=== PATIENT | male | born 1935 | race Caucasian/White ===

== ENCOUNTER 2017-08-12 11:31 | Emergency (ER) | payer BC ==
[~2017-08-12] VITALS: Ht 172.7 cm; Wt 80.7 kg
[2017-08-12 11:43] VITALS: BP_SYST 158
[2017-08-12 13:30] VITALS: BP_SYST 141
== END 2017-08-12 13:30 | disposition home or self-care (01) ==
LOC: SED 11:31
DX: M19.90 Unspecified osteoarthritis, unspecified site (principal); I10 Essential (primary) hypertension; E11.9 Type 2 diabetes mellitus without complications
CPT/HCPCS: 36415; 84550-TC; 99285

== ENCOUNTER 2021-02-08 12:03 | Observation (INO) | payer OTHER, SELFPAY ==
[~2021-02-08] VITALS: Ht 165.1 cm; Wt 68.5 kg
[2021-02-08 12:07] VITALS: BP_SYST 132
[2021-02-08] MEDS ORDERED: MORPHINE 4 MG INJ. 4 MG/ML VIAL IVP ONE (14:15)
[2021-02-08] MEDS ORDERED: DIAZEPAM 5 MG TABLET (VALIUM) PO ONE (14:15)
[2021-02-08 14:27] LABS: BASOPHILS # (AUTO) 0.1 K/uL (0.0-0.2); EOSINOPHILS % (AUTO) 0.6 % (0.0-4.0); HEMATOCRIT 39.3 % (36-54); HEMOGLOBIN 13.3 g/dL (14.0-18.0); LYMPHOCYTES % (AUTO) 15.2 % (20.5-51.5); MEAN CORPUSCULAR HEMOGLOBIN 31 pg (27-31); MEAN CORPUSCULAR HGB CONC 34 % (32-36); MEAN CORPUSCULAR VOLUME 91 fL (79.0-98.0); MONOCYTES # (AUTO) 0.5 K/uL (0.0-1.0); MONOCYTES % (AUTO) 7.3 % (1.7-9.3); NEUTROPHILS # (AUTO) 4.8 K/uL (1.8-7.7); NEUTROPHILS % (AUTO) 75.9 % (40.0-70.0); PLATELET COUNT (AUTO) 138 K/uL (130-430); RED BLOOD CELL COUNT(AUTO) 4.31 MIL/uL (4.2-6.2); RED CELL DISTRIBUTION WIDTH 13.5 % (9.0-15.0); WHITE BLOOD COUNT (AUTO) 6.3 K/uL (4.8-10.8)
[2021-02-08 14:38] LABS: BILIRUBIN,URINE NEGATIVE (NEGATIVE); BLOOD, URINE NEGATIVE (NEGATIVE); CLARITY/URINE CLEAR (CLEAR); COLOR,URINE YELLOW (YELLOW); GLUCOSE,URINE 2+ (NEGATIVE); KETONES,URINE NEGATIVE (NEGATIVE); LEUKOCYTE ESTERASE ,URINE NEGATIVE (NEGATIVE); NITRITE, URINE NEGATIVE (NEGATIVE); PROTEIN URINE NEGATIVE (NEGATIVE); UROBILINOGEN,URINE 0.2 (0.2-1.0)
[2021-02-08 14:45] LABS: ALANINE AMINOTRANSFERASE 34 U/L (12-78); ALBUMIN 4.6 g/dL (3.4-4.8); ASPARTATE AMINOTRANSFERASE 21 U/L (10-37); CALCIUM 9.2 mg/dL (8.4-11.0); GLUCOSE 235 mg/dL (70-99); TOTAL BILIRUBIN 0.5 mg/dL (0.0-1.0); UREA NITROGEN, BLOOD 22 mg/dL (8-21)
[2021-02-08 14:52] LABS: INR 1.6 (0.80-1.20); PROTHROMBIN TIME 16.7 SECS (9.5-12.5)
[2021-02-08 15:03] LABS: ANION GAP 11 (5-15); CHLORIDE 98 mmol/L (98-107); POTASSIUM 4.1 mmol/L (3.5-5.1); SODIUM SERUM 135 mmol/L (136-145)
[2021-02-08] MEDS ORDERED: IOHEXOL 350 mgI/mL, 150 ML INFUS..BTL IV ONE (15:30)
[2021-02-08] MEDS ORDERED: SIMV40TA2 PO (18:27)
[2021-02-08] MEDS ORDERED: METF-518 PO (18:27)
[2021-02-08] MEDS ORDERED: MIRT-91 PO (18:27)
[2021-02-08] MEDS ORDERED: DIGO125T PO (18:27)
[2021-02-08] MEDS ORDERED: PLE5 PO (18:27)
[2021-02-08] MEDS ORDERED: HYDR25TA4 PO (18:27)
[2021-02-08] MEDS ORDERED: WARF-52 PO (18:27)
[2021-02-08] MEDS ORDERED: ALPR0.5T8 PO (18:27)
[2021-02-08] MEDS ORDERED: FOSI20TA98 PO (18:27)
[2021-02-08] MEDS ORDERED: ALBUTEROL SULFATE 0.083% 2.5 MG/3 ML VIAL.NEB INH PRN (18:45)
[2021-02-08] MEDS ORDERED: ACETAMINOPHEN 325 MG TABLET PO PRN (18:45)
[2021-02-08] MEDS ORDERED: HYDROmorphone 1 MG/ML INJ. CARTRIDGE IVP PRN (19:00)
[2021-02-08] MEDS ORDERED: INSULIN REGULAR, HUMAN 100 UNITS/ML, 10 ML VIAL (humuLIN R) SUBCUT PRN (19:00)
[2021-02-08] MEDS ORDERED: SIMVASTATIN 40 MG TABLET PO SCH (21:00)
[2021-02-08] MEDS ORDERED: WARFARIN SODIUM 5 MG TABLET PO SCH (21:00)
[2021-02-08] MEDS ORDERED: WARFARIN SODIUM 5 MG TABLET ONE (21:33)
[2021-02-08] MEDS ORDERED: MIRTAZAPINE 15 MG TABLET ONE (21:34)
[2021-02-08] MEDS ORDERED: SIMVASTATIN 40 MG TABLET ONE (21:34)
[2021-02-08] MEDS: MIRTAZAPINE 15 MG TABLET PO SCH (21:52)
[2021-02-09 01:31] VITALS: BP_SYST 150
[2021-02-09 06:43] VITALS: BP_SYST 150
[2021-02-09 07:46] VITALS: BP_SYST 154
[2021-02-09] MEDS: MIRTAZAPINE 15 MG TABLET PO SCH (08:17)
[2021-02-09] MEDS ORDERED: lisinopriL 20 MG TABLET PO SCH (09:00)
[2021-02-09] MEDS ORDERED: DIGOXIN 0.125 MG TABLET PO SCH (09:00)
[2021-02-09] MEDS ORDERED: amLODIPine BESYLATE 5 MG TABLET PO SCH (09:00)
[2021-02-09] MEDS ORDERED: METF-379 PO (09:55)
[2021-02-09] MEDS ORDERED: MIRT-92 PO (09:55)
[2021-02-09 10:32] LABS: INR 1.5 (0.80-1.20); PROTHROMBIN TIME 16.1 SECS (9.5-12.5)
[2021-02-09 10:53] LABS: THYROID STIMULATING HORMONE 5.97 uIu/mL (0.36-3.74)
[2021-02-09 10:54] VITALS: BP_SYST 145
[2021-02-09 11:26] VITALS: BP_SYST 138
[2021-02-09] MEDS ORDERED: WARFARIN SODIUM 5 MG TABLET PO SCH (18:00)
== END 2021-02-09 11:42 | disposition home or self-care (01) ==
LOC: SED 12:03 → INTOOBSV 18:38 → STU 18:38
PROVIDERS: ADMIT Internal Medicine Hospice and Palliative Medicine; ATTEND Internal Medicine Hospice and Palliative Medicine
DX: R07.89 Other chest pain (principal); Z20.822 Contact with and (suspected) exposure to COVID-19; I48.20 Chronic atrial fibrillation, unspecified; I10 Essential (primary) hypertension; E11.9 Type 2 diabetes mellitus without complications; Z86.73 Personal history of transient ischemic attack (TIA), and cerebral infarction without residual deficits; Z79.01 Long term (current) use of anticoagulants; Z79.84 Long term (current) use of oral hypoglycemic drugs; Z79.899 Other long term (current) drug therapy
CPT/HCPCS: 36415 ×2; 70450; 70498; 71045; 76376; 80053; 81003; 82962 ×2; 83880; 84443; 84484 ×2; 85025; 85610 ×2; 85730; 86886; 86900; 86901; 87426; 93005; 93306; 96374; 96375; 99285; G0378; J1170; J2270; Q9967

== ENCOUNTER 2021-02-09 20:40 | Emergency (ER) | payer OTHER, SELFPAY ==
[~2021-02-09] VITALS: Ht 175.3 cm; Wt 72.1 kg
[~2021-02-09 20:40] MED LIST: ALPR0.5T8 PO; DIGO125T PO; FOSI20TA98 PO; HYDR25TA4 PO; METF-379 PO; METF-518 PO; MIRT-91 PO; MIRT-92 PO; PLE5 PO; SIMV40TA2 PO; WARF-52 PO
[2021-02-09 20:44] VITALS: BP_SYST 144
--- NOTE | 2021-02-09 20:44 | NUR ---
Patient to ER bed 2 to gown for evaluation. Side rails up.
--- NOTE | 2021-02-09 20:50 | NUR ---
PATIENT AAOX4 BIB SON FROM HOME C/O PALIPATIONS WITH WEAKNESS, SHAKINESS, AND ANXIETY. PATIENT HAS HISTORY OF HTN, DM, A-FIB, ANXIETY. WAS RECENTLY DISCHARGED FROM HOSPITAL LAST NIGHT FOR PALPITATIONS. VSS. DENIES ANY CHEST PAIN, SOB.
--- NOTE | 2021-02-09 21:04 | NUR ---
DR. PHAN AT BEDSIDE FOR EVALUATION.
--- NOTE | 2021-02-09 21:19 | NUR ---
Blood for labwork drawn. Patient tolerated WELL
[2021-02-09 21:42] LABS: BASOPHILS % (AUTO) 0.6 % (0.0-2.0); EOSINOPHILS # (AUTO) 0.5 K/uL (0.0-0.4); EOSINOPHILS % (AUTO) 7.3 % (0.0-4.0); HEMATOCRIT 41.9 % (36-54); HEMOGLOBIN 14.2 g/dL (14.0-18.0); LYMPHOCYTES # (AUTO) 1.6 K/uL (1.0-5.5); LYMPHOCYTES % (AUTO) 21.5 % (20.5-51.5); MEAN CORPUSCULAR HEMOGLOBIN 31 pg (27-31); MEAN CORPUSCULAR HGB CONC 34 % (32-36); MEAN CORPUSCULAR VOLUME 92 fL (79.0-98.0); MONOCYTES # (AUTO) 0.5 K/uL (0.0-1.0); MONOCYTES % (AUTO) 6.7 % (1.7-9.3); NEUTROPHILS # (AUTO) 4.6 K/uL (1.8-7.7); NEUTROPHILS % (AUTO) 63.9 % (40.0-70.0); PLATELET COUNT (AUTO) 157 K/uL (130-430); RED BLOOD CELL COUNT(AUTO) 4.57 MIL/uL (4.2-6.2); RED CELL DISTRIBUTION WIDTH 13.6 % (9.0-15.0); WHITE BLOOD COUNT (AUTO) 7.3 K/uL (4.8-10.8)
[2021-02-09 22:11] LABS: ANION GAP 12 (5-15); CALCIUM 9.8 mg/dL (8.4-11.0); CHLORIDE 99 mmol/L (98-107); CREATININE 0.94 mg/dL (0.55-1.30); GLUCOSE 127 mg/dL (70-99); POTASSIUM 3.8 mmol/L (3.5-5.1); SODIUM SERUM 136 mmol/L (136-145); UREA NITROGEN, BLOOD 26 mg/dL (8-21)
[2021-02-09 22:25] LABS: THYROID STIMULATING HORMONE 5.86 uIu/mL (0.36-3.74)
[2021-02-09 22:42] VITALS: BP_SYST 144
--- NOTE | 2021-02-09 22:44 | NUR ---
Patient given written and verbal discharge instructions and verbalizes understanding. DR. EMILIE GANT MD discussed with patient the results and treatment provided. Patient in stable condition. ID arm band removed. Patient educated on pain management and to follow up with PMD. Pain Scale 0/10 Opportunity for questions provided and answered. Medication side effect fact sheet provided.
== END 2021-02-09 22:44 | disposition home or self-care (01) ==
LOC: SED 20:40
DX: F13.239 Sedative, hypnotic or anxiolytic dependence with withdrawal, unspecified (principal); I48.91 Unspecified atrial fibrillation; R00.2 Palpitations
CPT/HCPCS: 36415; 71045; 80048; 84443; 84484; 85025; 93005; 99285